=== PATIENT | male | born 1975 | race Hispanic/Latino ===

== ENCOUNTER 2018-11-06 10:52 | Emergency (ER) | payer OTHER ==
[2018-11-06] MEDS ORDERED: PROMETHAZINE HCL 25 MG/ML 1ML AMPULE IM ONE (11:43)
[2018-11-06 11:47] LABS: BASOPHILS % (AUTO) 0.5 % (0.0-5.0); HEMATOCRIT 43.3 % (42-54); LYMPHOCYTES % (AUTO) 8.7 % (21.0-51.0); MEAN CORPUSCULAR HEMOGLOBIN 30.4 pg (27.0-33.0); MEAN CORPUSCULAR HGB CONC 34.4 g/dL (32.0-36.0); MEAN CORPUSCULAR VOLUME 88.2 fL (79-99); MONOCYTES % (AUTO) 2.5 % (3.0-13.0); NEUTROPHILS % (AUTO) 88.3 % (40.0-77.0); PLATELET COUNT (AUTO) 290 K/uL (130-400); RED BLOOD CELL COUNT(AUTO) 4.91 MIL/uL (4.50-6.20); RED CELL DISTRIBUTION WIDTH 13.5 % (11.0-15.5); WHITE BLOOD COUNT (AUTO) 10.5 K/uL (4.8-10.8)
[2018-11-06 11:59] LABS: CREATININE 1.1 mg/dL (0.5-1.5); POTASSIUM 4.2 mmol/L (3.5-5.1)
[2018-11-06 12:02] LABS: INR 0.93 (0.85-1.15); PARTIAL THROMBOPLASTIN TIME 22.8 SEC (26.3-35.5); PROTHROMBIN TIME 9.8 SEC (9.6-11.6)
[2018-11-06] MEDS ORDERED: FAMOTIDINE/PF 20 MG/2 ML VIAL IV ONE (12:11)
[2018-11-06 12:12] LABS: ALBUMIN 3.4 g/dL (3.5-5.0); BILIRUBIN,DIRECT 0.1 mg/dL (0.0-0.3); BILIRUBIN,TOTAL 1.4 mg/dL (0.2-1.0); TOTAL PROTEIN, SERUM 7.3 g/dL (6.0-8.3)
[2018-11-06 13:32] LABS: APPEARANCE,URINE Clear (CLEAR); BILIRUBIN,URINE Negative (NEGATIVE); COLOR,URINE Yellow (YELLOW); GLUCOSE, URINE (UA) >=1000 mg/dL (NEGATIVE); KETONES,URINE >=80 mg/dL (NEGATIVE); LEUKOCYTE ESTERASE ,URINE Negative (NEGATIVE); NITRATE,URINE Negative (NEGATIVE); OCCULT BLOOD,URINE Negative (NEGATIVE); PH,URINE 5.5 (5.0-8.0); PROTEIN,URINE >=1000 mg/dL (NEGATIVE)
[2018-11-06 13:39] LABS: AMPHET/METH SCREEN,URINE NEGATIVE (NEGATIVE); BARBITURATE SCREEN, URINE NEGATIVE (NEGATIVE); BENZODIAZEPINES SCREEN,URINE NEGATIVE (NEGATIVE); CANNABINOID SCREEN,URINE NEGATIVE (NEGATIVE); COCAINE SCREEN,URINE NEGATIVE (NEGATIVE); OPIATE SCREEN,URINE NEGATIVE (NEGATIVE); PHENCYCLIDINE SCREEN,URINE NEGATIVE (NEGATIVE)
[2018-11-06 13:40] LABS: BACTERIA,URINE Rare /HPF (None Seen); MUCUS,URINE Rare LPF (None Seen); RBC,URINE 0-1 /HPF (0-1); SQUAMOUS EPITHELIAL CELL,UR Rare /HPF (0-2); WBC,URINE 0-1 /HPF (0-1)
[2018-11-06] MEDS ORDERED: PROCHLORPERAZINE EDISYLATE 10 MG/2 ML VIAL ONE (14:34)
== END 2018-11-06 16:29 | disposition home or self-care (01) ==
LOC: EDBD 10:52 → EDH 10:52
DX: R10.84 Generalized abdominal pain (principal); E11.65 Type 2 diabetes mellitus with hyperglycemia; I10 Essential (primary) hypertension
CPT/HCPCS: 36415; 76700; 80048; 80076; 80305; 81001; 82550; 83690; 84484; 85025; 85610; 85730; 93005; 96361; 96372 ×2; 96374; 99284; J0780; J2550; J3490

== ENCOUNTER 2020-02-15 23:56 | Emergency (ER) | payer OTHER, SELFPAY ==
[2020-02-16 00:39] LABS: CREATININE 1.5 mg/dL (0.5-1.5); POTASSIUM 3.8 mmol/L (3.5-5.1)
[2020-02-16 00:44] LABS: ALBUMIN 2.9 g/dL (3.5-5.0); BILIRUBIN,TOTAL 0.4 mg/dL (0.2-1.0); TOTAL PROTEIN, SERUM 7.4 g/dL (6.0-8.3)
[2020-02-16 00:53] LABS: HEMATOCRIT 41.8 % (42-54); LYMPHOCYTES % (AUTO) 22.8 % (21.0-51.0); MEAN CORPUSCULAR HEMOGLOBIN 29.4 pg (27.0-33.0); MEAN CORPUSCULAR HGB CONC 34.4 g/dL (32.0-36.0); MEAN CORPUSCULAR VOLUME 85.3 fL (79-99); MONOCYTES % (AUTO) 4.5 % (3.0-13.0); NEUTROPHILS % (AUTO) 72.4 % (40.0-77.0); PLATELET COUNT (AUTO) 223 K/uL (130-400); RED CELL DISTRIBUTION WIDTH 12.2 % (11.0-15.5); WHITE BLOOD COUNT (AUTO) 7.5 K/uL (4.8-10.8)
[2020-02-16] MEDS ORDERED: ONDANSETRON ODT 4 MG TAB ONE (01:29)
== END 2020-02-16 03:04 | disposition home or self-care (01) ==
LOC: EDH 23:56
DX: U07.1 COVID-19 (principal); R06.00 Dyspnea, unspecified; R11.0 Nausea; E11.9 Type 2 diabetes mellitus without complications; I10 Essential (primary) hypertension; E86.0 Dehydration
CPT/HCPCS: 36415; 71045; 80053; 82948; 85025; 96372

== ENCOUNTER 2020-02-19 11:16 | Emergency (ER) | payer OTHER ==
[2020-02-19] MEDS ORDERED: ONDANSETRON HCL 4 MG/2 ML VIAL ONE ×2 (13:01→16:18)
[2020-02-19 13:48] LABS: BASOPHILS % (AUTO) 0.1 % (0.0-5.0); EOSINOPHILS % (AUTO) 0.1 % (0.0-8.0); HEMATOCRIT 40.1 % (42-54); LYMPHOCYTES % (AUTO) 8.2 % (21.0-51.0); MEAN CORPUSCULAR HEMOGLOBIN 29.9 pg (27.0-33.0); MEAN CORPUSCULAR HGB CONC 34.7 g/dL (32.0-36.0); MEAN CORPUSCULAR VOLUME 86.2 fL (79-99); MONOCYTES % (AUTO) 3.3 % (3.0-13.0); PLATELET COUNT (AUTO) 265 K/uL (130-400); RED BLOOD CELL COUNT(AUTO) 4.65 MIL/uL (4.50-6.20); RED CELL DISTRIBUTION WIDTH 12.1 % (11.0-15.5)
[2020-02-19 14:03] LABS: ALBUMIN 2.7 g/dL (3.5-5.0); BILIRUBIN,TOTAL 0.5 mg/dL (0.2-1.0); CREATININE 1.4 mg/dL (0.5-1.5); POTASSIUM 4.1 mmol/L (3.5-5.1); TOTAL PROTEIN, SERUM 7.1 g/dL (6.0-8.3)
[2020-02-19] MEDS ORDERED: INSULIN HUMULIN R 100 UNIT/ML 3ML ONE ×2 (15:18→16:04)
[2020-02-19] MEDS ORDERED: SODIUM CHLORIDE 0.9% 1000ML 1,000 ML IV ONE (16:32)
[2020-02-19] MEDS ORDERED: HYDRALAZINE HCL 20 MG/ML VIAL ONE (16:46)
[2020-02-19] MEDS ORDERED: MORPHINE SULFATE 4 MG/1ML SYG ONE (18:06)
[2020-02-19] MEDS ORDERED: LABETALOL 20 MG/4 ML DISP.SYRIN IV ONE (18:59)
== END 2020-02-19 20:25 | disposition home or self-care (01) ==
LOC: EDH 11:16
DX: U07.1 COVID-19 (principal); E11.65 Type 2 diabetes mellitus with hyperglycemia; R11.2 Nausea with vomiting, unspecified; I10 Essential (primary) hypertension
CPT/HCPCS: 36415; 71045; 80053; 82550; 82948; 84484; 85025; 93005; 96361; 96374; 96375; 96376; 99285; J0360; J1815 ×2; J2270; J2405 ×2; J7030

== ENCOUNTER 2023-11-14 10:54 | Emergency (ER) | payer BC, SELFPAY ==
[~2023-11-14] VITALS: Ht 165.1 cm; Wt 86.2 kg
[~2023-11-14 10:54] MED LIST: AMLO-257 PO; DOXA2TAB2 PO; EMPA10TA PO; GEMF600T89 PO; LISI20TA24 PO; OMEP40CA21 PO; TAMS-1 PO
[2023-11-14 11:36] LABS: APPEARANCE,URINE CLEAR (CLEAR); BILIRUBIN,URINE NEGATIVE (NEGATIVE); COLOR,URINE LIGHT-YELLOW (YELLOW); GLUCOSE, URINE (UA) NEGATIVE (NEGATIVE); KETONES,URINE NEGATIVE (NEGATIVE); LEUKOCYTE ESTERASE ,URINE NEGATIVE Leu/uL (NEGATIVE); NITRATE,URINE NEGATIVE (NEGATIVE); OCCULT BLOOD,URINE SMALL (NEGATIVE); PROTEIN,URINE 600 mg/dL (NEGATIVE); UROBILINOGEN,URINE 0.2 mg/dL (0.2-1.0)
[2023-11-14 11:38] LABS: ADD UA MICROSCOPIC YES
[2023-11-14 11:43] LABS: AMPHET/METH SCREEN,URINE NEGATIVE (NEGATIVE); BARBITURATE SCREEN, URINE NEGATIVE (NEGATIVE); BENZODIAZEPINES SCREEN,URINE NEGATIVE (NEGATIVE); CANNABINOID SCREEN,URINE NEGATIVE (NEGATIVE); COCAINE SCREEN,URINE NEGATIVE (NEGATIVE); OPIATE SCREEN,URINE NEGATIVE (NEGATIVE); PHENCYCLIDINE SCREEN,URINE NEGATIVE (NEGATIVE)
[2023-11-14 11:50] LABS: BACTERIA,URINE RARE /HPF (None Seen); SQUAMOUS EPITHELIAL CELL,UR RARE /HPF (0-2)
[2023-11-14 11:57] LABS: BASOPHILS # (AUTO) 0.03 K/uL (0.00-0.20); BASOPHILS % (AUTO) 0.3 % (0.0-5.0); EOSINOPHILS # (AUTO) 0.02 K/uL (0.00-0.70); EOSINOPHILS % (AUTO) 0.2 % (0.0-8.0); HEMATOCRIT 34.2 % (42-54); IMMATURE GRANULOCYTE ABSOLUTE 0.05 K/uL (0-1); LYMPHOCYTES # (AUTO) 0.9 K/uL (1.0-4.8); LYMPHOCYTES % (AUTO) 7.8 % (21.0-51.0); MEAN CORPUSCULAR HGB CONC 33.9 g/dL (32.0-36.0); MEAN CORPUSCULAR VOLUME 88.4 fL (79-99); MONOCYTES # (AUTO) 0.5 K/uL (0.1-1.0); MONOCYTES % (AUTO) 4.6 % (3.0-13.0); NEUTROPHILS # (AUTO) 9.9 K/uL (1.8-7.7); NEUTROPHILS % (AUTO) 86.7 % (40.0-77.0); PLATELET COUNT (AUTO) 275 K/uL (130-400); RED BLOOD CELL COUNT(AUTO) 3.87 MIL/uL (4.50-6.20); RED CELL DISTRIBUTION WIDTH 13.5 % (11.0-15.5); WHITE BLOOD COUNT (AUTO) 11.4 K/uL (4.8-10.8)
[2023-11-14 12:15] LABS: ALANINE AMINOTRANSFERASE 26 U/L (12-78); ALBUMIN 3.2 g/dL (3.5-5.0); ALCOHOL, BLOOD < 3 mg/dL (0-10); AMMONIA 12 umol/L (11-32); ASPARTATE AMINOTRANSFERASE 17 U/L (10-37); BILIRUBIN,TOTAL 0.5 mg/dL (0.2-1.0); CARBON DIOXIDE 26 mmol/L (21-32); CHLORIDE 104 mmol/L (101-111); CREATININE 3.4 mg/dL (0.5-1.3); GLOMERULAR FILTR. RATE CALC 21 mL/min (>90); POTASSIUM 4.5 mmol/L (3.5-5.1); SODIUM SERUM 139 mmol/L (136-145); UREA NITROGEN, BLOOD 46 mg/dL (7-18)
[2023-11-14 12:28] LABS: GLUCOSE,RANDOM 50 mg/dL (70-105)
[2023-11-14 14:47] VITALS: BP 145/78; PULSE 78; RESP 18; O2SAT 98
== END 2023-11-14 14:48 | disposition home or self-care (01) ==
LOC: EDH 10:54
DX: E11.649 Type 2 diabetes mellitus with hypoglycemia without coma (principal); I12.9 Hypertensive chronic kidney disease with stage 1 through stage 4 chronic kidney disease, or unspecified chronic kidney disease; E11.22 Type 2 diabetes mellitus with diabetic chronic kidney disease; N18.9 Chronic kidney disease, unspecified; Z79.899 Other long term (current) drug therapy; Z98.890 Other specified postprocedural states
CPT/HCPCS: 36415; 70450; 80053; 80305; 81001; 82140; 82948; 84484; 85025; 93005

== ENCOUNTER 2025-06-14 18:29 | Emergency (ER) | payer BC ==
[~2025-06-14] VITALS: Ht 165.1 cm; Wt 76.2 kg
[~2025-06-14 18:29] MED LIST changes: -AMLO-257 PO; +CARV6.25 PO; +Calcitriol 0.25MCG Cap PO; -EMPA10TA PO; +FAMO-136 PO; +FERR325T29 PO; +FOLI0.8T22 PO; -GEMF600T89 PO; +HYDR10 PO; -LISI20TA24 PO; +NIFE-40 PO; +SODI650T PO; -TAMS-1 PO; +VITA-348 PO
--- NOTE | 2025-06-14 19:18 | ERN ---
General Chief Complaint: Back Pain-No Injury Stated Complaint: HEADACHE, UPPER BACK PAIN Time Seen by MD: 19:02 History of Present Illness Initial Comments 49-year-old male history of ESRD with recent hemodialysis and left AV fistula placement presents to emergency room with the complaints of right neck pain. Patient states that he was seen and evaluated yesterday for similar symptoms and [facility] was given tramadol however he has not taken any medications since 1:00 a.m. earlier today. He presents today with decreased range of motion of the neck secondary to pain. No nausea vomiting diarrhea. No numbness or tingling in upper or lower extremities. No chest pain or palpitations. Denies any trauma to the neck. Allergies: Coded Allergies: No Known Drug Allergies (Unverified Allergy, Unknown, 06/09/22) Home Meds Active Scripts [Calcitriol 0.25MCG Cap] 0.25 MCG CAPSULE No Conflict Check, 0.5 MCG PO DAILY, #60 CAP 0 Refills Prov:COURTNEY MORRIS I [employer] 08/23/24 Nifedipine (Nifedipine ER) 30 Mg Tab.er.24, 60 MG PO DAILY, #30 TAB 0 Refills Prov:LIANNA LANDRY AGACNP 03/18/24 Doxazosin Mesylate (Doxazosin Mesylate) 2 Mg Tablet, 2 MG PO DAILY for 30 Days, #30 TAB 1 Refill Prov:TANYA RIVAS Jr., MD 06/15/22 Reported Medications Hydralazine HCl (Apresoline) 10 Mg Tab, 1 TAB PO TID for 30 Days, #90 TAB 0 Refills 08/21/24 Folic Acid/Vitamin B Comp W-C (Cheryl-Bhumi Tablet) 0.8 Mg Tablet, 0.8 MG PO DAILY, TAB 08/21/24 Carvedilol (Carvedilol) 6.25 Mg Tablet, 1 TAB PO BID for 30 Days, #60 TAB 0 Refills 08/21/24 Famotidine (Pepcid) 20 Mg Tablet, 20 MG PO AM, TAB 03/14/24 Ferrous Sulfate (Ferosul) 325 Mg (65 Mg Iron) Tablet, 325 MG PO DAILY, TAB 03/14/24 Sodium Bicarbonate (Sodium Bicarbonate) 650 Mg Tablet, 650 MG PO BID, TAB 03/14/24 Folic Acid/Vitamin B Comp W-C (Cheryl-Bhumi Tablet) 0.8 Mg Tablet, 0.8 MG PO DAILY, TAB 03/14/24 Vitamin E Mixed (Vitamin E) 400 Unit Capsule, 400 UNIT PO DAILY, CAP 03/14/24 Omeprazole (Omeprazole) 40 Mg Capsule.dr, 40 MG PO DAILY, CAP 06/10/22 Past Medical History Past Medical History: Diabetes-Type II, Hypertension, Renal Disese, Other Medical History Other: KIDNEYS ISSUE Past Surgical History: None Constitutional: (-) fever Musculoskeletal: (+) Neck pain Review of Systems: was completed, & the rest were negative. Physical Exam Physical Exam Dictation GENERAL APPEARANCE NAD, activity normal for age, well developed/ well nourished, no cyanosis, pallor, or diaphoresis. EYES lids/conjunctiva normal. EARS/NOSE/THROAT Mucous membranes moist, nares normal, lips/teeth normal uvula midline without oral pharyngeal erythema, exudate or swelling TMs normal bilaterally. No lymphangitis/lymphedema. HEAD/NECK : See below RESPIRATORY respiratory effort normal, speaks in full sentences, no tripod position, no accessory muscle use. Lungs clear to auscultation without rhonchi, wheezes, rales CARDIAC Regular rate and rhythm, no edema. ABDOMINAL Soft, ND/NT. No evidence of fluid wave. No pulsatile masses on exam, rebound tenderness, Khan sign or pain over Mcburney's point. MUSCLES/EXTREMITIES No abnormal range of motion, no swelling. SKIN Warm, pink and dry. No rashes, dermatoses, petechiae or lesions. NEUROLOGICAL Speech is clear and appropriate. Normal level of consciousness. Gait and coordination are normal. 5/5 strength in all extremities. PSYCH Normal mood and affect. Judgement/competence is appropriate Neck Comment Left paracervical muscle spasm noted on palpation. Tender to palpation. Able to turn neck left and right. Limited range of motion to the left secondary to pain. MDM 49-year-old male here for evaluation of neck pain. Likely musculoskeletal. We will give muscle relaxant and reassess. ED Course Orders Procedure Category Date Status Time Cyclobenzaprine Hcl PHA 06/14/25 Complete (Cyclobenzaprine Hcl 19:30 Acetaminophen 500mg PHA 06/14/25 Complete Tab (Tylenol 500mg T 19:30 Lidocaine (Lidocaine PHA 06/14/25 Complete Patch 4%) 19:30 Current Medications Medications (Trade) Dose Ordered Sig/Gala Route PRN Reason Start Time Stop Time Status Last Admin Dose Admin Acetaminophen (TYLenol 500MG TAB) 500 mg ONCE ONCE PO 06/14/25 19:30 06/14/25 19:31 DC 06/14/25 19:30 Cyclobenzaprine HCl (Cyclobenzaprine HCl) 10 mg ONCE ONCE PO 06/14/25 19:30 06/14/25 19:31 DC 06/14/25 19:31 Lidocaine (Lidocaine Patch 4%) 1 each ONCE ONCE TP 06/14/25 19:30 06/14/25 19:31 DC 06/14/25 19:31 Vital Signs Date Time Temp Pulse Resp B/P (MAP) Pulse Ox O2 Delivery O2 Flow Rate FiO2 06/14/25 19:47 98.8 81 18 151/76 99 Room Air* 0 21 06/14/25 18:31 98.1 76 16 136/67 98 0 49-year-old male ESRD on hemodialysis with left AV fistula and right chest port here for evaluation of neck spasms. Patient improved with Flexeril on my evaluation here. We will discharge home with dose of Flexeril as well as pain medications. Advised to follow up with the PCP. Advised on concerning signs and symptoms for which to return to the emergency room. Discharge home at this time DX & DISP Disposition: Discharge Departure Impression: Primary Impression: Neck muscle spasm Additional Impression: ESRD (end stage renal disease) on dialysis Condition: Stable Scripts Cyclobenzaprine HCl (Flexeril) 10 Mg Tab 1 TAB PO TID for muscle spasms for 7 Days, #21 TAB 0 Refills Prov: HARIS PAREKH MD 06/14/25 Lidocaine (Lidocaine Pain Relief) 4 % Adh..patch 1 PATCH TP DAILY for 10 Days, #10 PATCH 0 Refills Prov: HARIS PAREKH MD 06/14/25 Referrals: SOLO ARRIAZA MD (PCP) HARIS PAREKH MD Jun 14, 2025 19:18
--- NOTE | 2025-06-14 19:25 | NUR ---
ASSUMED PT CARE
[2025-06-14] MEDS: LIDOCAINE 4% ADH..PATCH TP ONE (19:31)
[2025-06-14] MEDS: CYCLOBENZAPRINE HCL 10 MG TABLET PO ONE (19:31)
[2025-06-14 19:47] VITALS: BP 151/76; PULSE 81; RESP 18; TEMP 98.8; O2SAT 99
[2025-06-14] MEDS ORDERED: CYCL10TA16 PO (20:07)
[2025-06-14] MEDS ORDERED: LIDO1ADH71 TP (20:07)
[2025-06-14] MEDS: HYDROcodone/APAP 5/325 1 TAB TABLET PO ONE (20:21)
== END 2025-06-14 20:18 | disposition home or self-care (01) ==
LOC: EDH 18:29
DX: M62.838 Other muscle spasm (principal); I12.0 Hypertensive chronic kidney disease with stage 5 chronic kidney disease or end stage renal disease; E11.22 Type 2 diabetes mellitus with diabetic chronic kidney disease; N18.6 End stage renal disease; Z79.899 Other long term (current) drug therapy; Z99.2 Dependence on renal dialysis
CPT/HCPCS: 99283